=== PATIENT | female | born 1945 | race Caucasian/White ===

== ENCOUNTER 2016-12-17 20:41 | Emergency (ER) | payer MEDICARE ==
[~2016-12-17] VITALS: Ht 157.5 cm; Wt 91.0 kg
[~2016-12-17 20:41] MED LIST: ASPI81 PO; ATEN1TAB73 PO; CELE40TA PO; HYDR12.56 OR; LEVO.1 PO; VITA400C28 PO
[2016-12-17 20:51] VITALS: BP 150/87; PULSE 88; RESP 16; TEMP 98; O2SAT 96
[2016-12-17 20:57] VITALS: BP 150/87; PULSE 88; RESP 16; TEMP 98; O2SAT 96
--- NOTE | 2016-12-17 20:59 | PD ---
HPI Chief Complaint: Fall Time Seen by Provider: 20:58 Travel History International Travel<30 days: No Contact w/Intl Traveler<30days: No History of Present Illness HPI 70-year-old female presents to ED for evaluation of 2/10 right knee pain. Worsened by straightening the leg and attempted ambulation. Onset just before arrival when she tripped over the threshold at a restaurant and fell onto her right knee. She states that she heard a loud crack as she tried to stand. She has not been able to bear weight since the accident. She denies numbness, tingling, weakness of the extremity. She endorses previous history of Bakers cyst and a meniscal tear in the same knee. No treatment attempt at home. NKDA. PFSH Past Medical History Depression: Yes Hypertension: Yes Thyroid Disease: Yes Social History Alcohol Use: Yes (occasionally) Tobacco Use: No Substance Use: No Allergies-Medications (Allergen,Severity, Reaction): Coded Allergies: No Known Allergies (Verified , 10/28/10) Reported Meds & Prescriptions Reported Meds & Active Scripts Active Reported Aspirin 81 Mg Tabdr 81 Mg PO DAILY Prozac (Fluoxetine HCl) 40 Mg Cap 40 Mg PO DAILY Synthroid (Levothyroxine Sodium) 100 Mcg Tab 100 Mcg PO DAILY Hydrochlorothiazide 25 Mg Tab 25 Mg PO DAILY Atenolol 25 Mg Tab 25 Mg PO DAILY Review of Systems Except as stated in HPI: all other systems reviewed are Neg Physical Exam Narrative GENERAL: Well-nourished, well-developed pleasant white female in no acute distress. SKIN: Warm and dry. HEAD: Normocephalic. EYES: No scleral icterus. No injection or drainage. NECK: Supple, trachea midline. No JVD or lymphadenopathy. CARDIOVASCULAR: Regular rate and rhythm without murmurs, gallops, or rubs. RESPIRATORY: Breath sounds equal bilaterally. No accessory muscle use. GASTROINTESTINAL: Abdomen soft, non-tender, nondistended. MUSCULOSKELETAL: No cyanosis, or edema. FOCUSED LEFT LOWER EXTREMITY EXAM: 2+ DP pulse. Tender to palpation over the patella and tibial plateau. No joint line TTP. No popliteal TTP. No tenderness to palpation of the femoral shaft or anterior lateral aspect of the left hip. No edema, no patellar balloting. Attempted extension of the leg elicits pain. Verus/valgus/anterior drawer testing deferred. Sensation intact to light touch distally. Cap refill less than 2 seconds. BACK: Nontender without obvious deformity. No CVA tenderness. Data Data Last Documented VS Vital Signs Date Time Temp Pulse Resp B/P Pulse Ox O2 Delivery O2 Flow Rate FiO2 12/17/16 20:57 98.0 88 16 150/87 96 Orders Knee, Complete (4vws) (12/17/16 21:02) Ice/Cold Pack (12/17/16 21:02) Crutches (12/17/16 ) ^ Knee Immobilizer (12/17/16 22:07) Immobilizer Knee 20 Inch (12/17/16 ) MDM Medical Decision Making Medical Screen Exam Complete: Yes Emergency Medical Condition: Yes Differential Diagnosis Contusion versus patellar fracture versus tibial fracture versus meniscal injury versus ligamentous injury versus other Narrative Course 70-year-old female presents to ED for evaluation of 2/10 right knee pain. Worsened by straightening the leg and attempted ambulation. Onset just before arrival when she tripped over the threshold at a restaurant and fell onto her right knee. She states that she heard a loud crack as she tried to stand. She has not been able to bear weight since the accident. She denies numbness, tingling, weakness of the extremity. She endorses previous history of Bakers cyst and a meniscal tear in the same knee. Vitals reviewed. Physical exam reveals a pleasant white female in no acute distress. She is holding the left knee in a flexed position. 2+ DP pulse. TTP of RIGHT patella and tibial plateau. No joint line TTP. No popliteal TTP. NO TTP of the femoral shaft or anterior lateral aspect of the left hip. No edema, no patellar balloting. Attempted extension of the leg elicits pain. Verus/valgus/anterior drawer testing deferred. Neurovascularly intact. Icepack was applied. X-rays reveal no bony injury per radiology read. Patient attempted to walk. She is able to bear weight but flexing the knee for ambulation elicits pain. She is placed in a knee immobilizer and provided a pair crutches. She is instructed to rest, ice , elevate the extremity, take NSAIDs as needed for pain, weight-bear as tolerated, return to normal, gentle activities as tolerated, follow up with the orthopedist. She indicated understanding of the instructions and is amenable to plan of care. This patient is stable and discharged home. Diagnosis Primary Impression: Effusion, right knee Additional Impression: Inability to ambulate due to knee Referrals: Orthopedist Patient Instructions: General Instructions, Knee Pain (ED) Additional Instructions: Rest, ice, elevate the extremity. Apply ice no longer than 10-15 minutes per hour a few times a day. 800 mg ibuprofen up to 3 times a day as needed for pain. Alternately could take 500 mg of naproxen twice a day as needed for pain. Return to normal, gentle activity as tolerated. No heavy weight bearing, long periods of standing, running, jumping activities for the next few weeks. (Laundry and dishes optional!) Follow up with orthopedist as discussed Return to the ED for any urgent or emergent medical condition. Med/Other Pt SpecificInfo: Prescription(s) given Disposition: 01 DISCHARGE HOME Condition: Stable Nel Saenz Dec 17, 2016 20:59
[2016-12-17] MEDS ORDERED: LEVO.1 PO (21:15)
[2016-12-17] MEDS ORDERED: ATEN25TA PO (21:15)
[2016-12-17] MEDS ORDERED: HYDR25TA5 PO (21:15)
[2016-12-17] MEDS ORDERED: ASPI1TAB69 PO (21:15)
[2016-12-17] MEDS ORDERED: PROZ40CA PO (21:15)
--- NOTE | 2016-12-17 21:41 | RADHPO ---
EXAM DATE/TIME: 12/17/2016 21:28 [facility] COMPARISON: No previous studies available for comparison. INDICATIONS : Right knee pain, fall. MEDICAL HISTORY : None. SURGICAL HISTORY : None. ENCOUNTER: Initial ACUITY: 1 day PAIN SCORE: 10/10 LOCATION: Right knee FINDINGS: No fracture or subluxation seen in the right knee. There is moderate to severe tricompartment osteoar thritis. A small joint effusion is evident, nonspecific. CONCLUSION: Osteoarthritis and a small joint effusion. No fracture demonstrated. Simon Palencia MD on December 17, 2016 at 21:39 Board Certified Radiologist. This report was verified electronically.
== END 2016-12-17 22:41 | disposition home or self-care (01) ==
LOC: PHEFT 20:41
DX: M25.461 Effusion, right knee (principal); F32.9 Major depressive disorder, single episode, unspecified; I10 Essential (primary) hypertension; W01.0XXA Fall on same level from slipping, tripping and stumbling without subsequent striking against object, initial encounter; Y92.511 Restaurant or cafe as the place of occurrence of the external cause
CPT/HCPCS: 73564; 99284; E0113; L1830